=== PATIENT | female | born 1985 | race African-American/Black ===

== ENCOUNTER 2016-11-29 05:32 | Inpatient (IN) | payer OTHER ==
[~2016-11-29] VITALS: Ht 170.2 cm; Wt 124.3 kg
--- NOTE | ~2016-11-29 | S ---
[facility] [place] [address] SURGICAL PATH RPT PROCEDURE Name: ESTEBAN FLORES Room #: 440-P DIS IN M.R.#: [id number] Admission: 11/29/16 Date of : 85 Discharge: 11/30/16 Report #: [id number] Path Case #: [id number] PATHOLOGY REPORT COLLECTION DATE: 12/02/2016 RECEIVED DATE: 12/02/2016 SUBMITTING PHYS: Dr. Jose Manuel Perez OTHER PHYS: Dr. Micki Centeno SPECIMEN(S) RECEIVED: A.Gastric sleeve * * * * * * * * * * * * FINAL DIAGNOSIS: Gastric sleeve, partial sleeve gastrectomy: - No diagnostic abnormalities. (IUV:csd; d/t: 12/02/2016) PATHOLOGIST: Loree Price M.D. REPORT ELECTRONICALLY SIGNED BY: Loree Price M.D. DATE/TIME: 12/02/2016 15:20 * * * * * * * * * * * * GROSS PATHOLOGY: The specimen is received in formalin, labeled "yue Madrigal". Received is a partial gastrectomy specimen with a stapled margin of resection measuring 25.1 x 5.9 x 3.1 cm in greatest dimensions. The serosal surface is pink-vazquez and smooth to slightly shaggy in appearance. Opening the specimen reveals pink-vazquez mucosa with normal architectural folds and multiple pale vazquez polyps ranging in size from 0.2 to 0.4 cm in maximum dimensions. The specimen is submitted representatively in cassette A1. (KAH; 11/29/2016) CLINICAL HISTORY: Morbid obesity INITIAL CPT CODE(S): A; 79464 Professional services performed by [facility] at [facility] [address], [place] [address] Technical services performed by [facility] at [address] [place] [address]. [facility] [address] [place] [address] SURGICAL PATH RPT PROCEDURE Name: ESTEBAN FLORES Room #: 440-P [facility] IN .R.#: [id number] Admission: 11/29/16 Date of : 85 Discharge: 11/30/16 Report #: [id number] Path Case #: [id number] [facility] [address] [address] PHONE: [phone] DIRECTOR: Baldo Moore M.D. * * * END OF REPORT * * *
--- NOTE | ~2016-11-29 | H ---
[facility] [place] [address] HISTORY AND PHYSICAL Name: MARKESTEBAN HELMS Room #: 440-P [facility] IN M.R.#: [id number] Admission: 11/29/16 Attend Phys: Jose Manuel Perez MD, Discharge: 11/30/16 Date of : 85 Report #: [id number] THIS REPORT FOR: //name// For History and Physical, please see office documentation/handwritten note in the patient's medical record. <ELECTRONICALLY SIGNED> By: Jose Manuel Perez MD, FACS 12/04/16 1557 1428 Jose Manuel Perez MD, FACS /jr
--- NOTE | ~2016-11-29 | O ---
[facility] [place] [address] OPERATIVE REPORT Name: ESTEBAN FLORES Room #: 440-P [facility] IN M.R.#: [id number] Admission: 11/29/16 Attend Phys: Jose Manuel Perez MD, Discharge: Date of : 85 Report #: [id number] THIS REPORT FOR: //name// CC: MARY physician/PCP Jose Manuel Perez DATE OF SERVICE: 11/29/2016 PREOPERATIVE DIAGNOSES: 1. Morbid obesity with a body mass index of 45.16. 2. Gastroesophageal reflux disease. 3. Snoring. 4. Lumbago. 5. Joint pain. 6. Fatigue. POSTOPERATIVE DIAGNOSES: 1. Morbid obesity with a body mass index of 45.16. 2. Gastroesophageal reflux disease. 3. Snoring. 4. Lumbago. 5. Joint pain. 6. Fatigue. 7. Moderate sized type 3 paraesophageal hernia. PROCEDURES PERFORMED: 1. Laparoscopic sleeve gastrectomy. 2. Laparoscopic repair of a type 3 paraesophageal hernia with cruroplasty. 3. Thorough esophagogastroduodenoscopy (EGD). SURGEON: Jose Manuel Perez MD HAND STONE POLISHER: Thom Valenzuela MD ANESTHESIA: General endotracheal anesthesia. ESTIMATED BLOOD LOSS: Minimal (less than 10 mL). COMPLICATIONS: None appreciated. SPECIMENS: Two-thirds of the lateral gastric resection specimen to pathology. INDICATIONS: The patient is a 30-year-old morbidly obese -Beninese female who has been seen for her desire for weight loss surgery as she has had a very long history of obesity and has tried numerous weight loss attempts, including physician-directed weight loss plans, all to no avail. The patient [facility] [address] [place] [address] OPERATIVE REPORT Name: ESTEBAN FLORES Room #: 440-P [facility] IN M.R.#: [id number] Admission: 11/29/16 Attend Phys: Jose Manuel Perez MD, Discharge: Date of : 85 Report #: [id number] has undergone a thorough multimodal workup including evaluation and clearance by her primary care provider as well as by a dietitian and a psychologist who have all cleared her to proceed forward with bariatric surgery as well as indicating that it is necessary for weight loss and assistance with resolution of her comorbid conditions. As such, indication was for the above-mentioned procedures today with intraoperative findings of a moderately large type 3 paraesophageal hernia with both the fundus and the gastroesophageal junction contained within the distal mediastinum that required an extensive mediastinal dissection and a formal repair of the type 3 paraesophageal hernia prior to proceeding with the sleeve gastrectomy today. PROCEDURE: After explaining the risks, benefits, and alternatives of the procedure with the patient in detail in the preoperative holding area and obtaining written consent, the patient was brought to the operating room and placed supine on the operating room table. After conducting a thorough timeout procedure, verifying correct patient and procedure, the patient was given general endotracheal anesthesia. Once adequate anesthesia was obtained, her SCDs were hooked up to pneumatic compression device and she was given a preoperative dose of antibiotics in line with the SCIP protocol. The patient was also given a dose of Lovenox 1 hour prior to the operating room to prevent venous thromboembolism. The patient was now positioned in the low lithotomy position with her legs in the Yellofin stirrups and her abdomen was prepped and draped in standard surgical sterile fashion. I began the procedure by performing a thorough EGD. The Handsn upper endoscope was used to intubate the oropharynx and was traversed down into the stomach. The pylorus was identified and intubated and the scope was advanced to the second portion of the duodenum. Slow and careful withdrawal of the EGD scope showed no evidence of duodenitis, gastritis, esophagitis, mass lesions or ulcerations. A retroflexion view of the scope did show evidence of a hiatal hernia and as such, this was a diagnostic exam. The scope was straightened out with its tip at the level of the pylorus and the stomach was fully desufflated. I now proceeded with the operative portion of the procedure. After sterily scrubbing, 5 mL of 0.5% marcaine with epinephrine was used to anesthestize the skin in the right upper quadrant. A #15 bladed scalpel was used to make a 1.5cm skin incision at that location and a 15mm visiport was introduced through that incision with a 5mm 0 degree laparoscope. Once intraabdominal access was identified visually, the laparoscope and the obturator for the port were removed and the abdomen was insufflated to 15mm Hg pressure. The laparoscope was then changed to a 5mm 30 degree laparoscope and was reintroduced through that trocar to ensure no injury upon entry and no pathology. I then proceeded to place three additional 5mm ports in the left mid abdomen under direct vision after anesthestizing at each location with 5mL of 0.5% marcaine. The laparoscope was then placed in the port just to the left of the patient's umbilicus and she was placed in steep reverse Trendelenberg position. I then placed the Deandra liver retractor in the subxyphoid location by anesthetizing the skin at that location with more local and creating a small [facility] [address] [place] [address] OPERATIVE REPORT Name: ESTEBAN FLORES Room #: 440-P ADM IN M.Kelsea.#: [id number] Admission: 11/29/16 Attend Phys: Jose Manuel Perez MD, Discharge: Date of : 85 Report #: [id number] skin cedrick. I utilized the obturator for the 5mm trocar to penetrate the fascia at that location and then maneuvered the retractor through this defect and up under the left lobe of the liver. The retractor was then held up into position using the iron internal auditor device to stabilize it. I now proceeded to start my dissection after identifying our landmarks. The vein of Velazquez was identified overlying the pylorus. I measured 4 cm proximal to this location and began taking down the short gastric arteries from this location all the way up the greater curvature of the stomach using Harmonic scalpel for hemostasis. Once I arrived upon the base of the left elissa, I dissected anteriorly up the left elissa all while providing inferior traction on the stomach as the fundus of the stomach was seen to reside in the distal mediastinum along with the gastroesophageal junction consistent with a type 3 paraesophageal hernia. As I dissected up the left elissa, I was able to deliver the fundus back into the abdomen. As the crural defect was identified to be moderately large would necessitate formal repair and as such, the stomach was retracted to the left lateral aspect of the abdomen and I opened the pars flaccida with Harmonic scalpel. This allowed me to identify the base of the right elissa. I dissected anteriorly up the right elissa meeting with the dissection from the left side. I then elevated the stomach and dissected the retroesophageal space to allow for circumferential control at this juncture. I now carried out an extensive mediastinal dissection while placing traction on the stomach inferiorly to take down all adhesions in the mediastinum that would cause the esophagus and upper stomach to attempt to retract back up into the mediastinum. At the completion of the extensive mediastinal dissection, we had approximately 2 cm of intra-abdominal esophagus that was not under tension to recoil backup into the mediastinum. I now proceeded to repair the hiatal defect by performing cruroplasty using numerous sutures of 0 Surgidac on the EndoStitch device to place 3 sutures posteriorly and 2 sutures anteriorly to close the hiatus to where it was snug, but not extremely tight to the esophagus. The sutures were placed in this fashion so as not to distort the angle of entry into the abdomen significantly. The stomach was now elevated and all posterior gastric attachments were taken down with Harmonic scalpel for hemostasis. We ensured that we were well away from both the posterior aspect of the stomach as well as the anterior aspect of the pancreas so as to prevent injury from thermal spread. The EGD scope was now positioned around along the lesser curvature of the stomach and I started the sleeve gastrectomy portion of the procedure. The [place] Weber 60 mm stapler with a black load utilizing Black's Elana-Strip buttressing material was placed into the abdomen through the 15-mm trocar. The first firing of the stapler was carried out at the location 4 cm proximal to the pylorus and fired right along, but not extremely tight to the scope, so as not to cause stricturing, especially at the incisura. It should be noted that the 5-mm trocar in the left mid abdomen was upsized to a 12-mm port under direct vision to allow for the EndoStitch device. Another firing of an additional black load again utilizing Black's Elana-Strip buttressing material was carried out following the scope as a 34-British bougie. I then fired 5 additional green loads all utilizing Black's Elana-Strip buttressing material [facility] [address] [place] [address] OPERATIVE REPORT Name: ESTEBAN FLORES Room #: [facility] IN .Kelsea.#: [id number] Admission: 11/29/16 Attend Phys: Jose Manuel Perez MD, Discharge: Date of : 85 Report #: [id number] following the scope as a bougie all the way up to the left elissa until the stomach was completely transected. I then proceeded to utilize 10 mL of Tisseel on the Lucid Colloidslospray device to coat the entirety of the staple line with fibrin glue. I now proceeded to grasp the resection specimen and removed it out of the abdomen through the 15-mm fascial incision under direct vision. I then placed a fascial closing sutures around the 15-mm and 12-mm fascial incisions using 0 PDS suture on a Chavo-Pablo needle under direct vision. Neither of these were tied down at this juncture, but they were tagged with hemostats and trocars were placed under direct vision. I now proceeded to instill normal saline in the upper abdomen and turn the EGD scope back on. The EGD scope was slowly withdrawn, evaluating the stomach from the inside to ensure hemostasis from the staple line as well as insufflate the stomach and while it was held under saline in the abdomen, we performed a leak test, which was negative. The EGD scope was used to fully deflate the stomach and was removed via the oropharynx and passed off the field showing no evidence of bleeding whatsoever. I then sterilely rescrubbed and enter the operative field and suctioned all of the normal saline out of the abdomen. The Deandra liver retractor was removed under direct vision. The liver was healthy and uninjured. I then proceeded to tie down both 0 PDS sutures to repair the fascial defects of the larger incisions. The abdomen was fully desufflated and all remaining trocars were removed under direct vision. A 4-0 Monocryl was used in a standard subcuticular fashion for all skin incisions and Dermabond glue was applied to all skin wounds. The corner of the resection specimen had been removed, was trimmed away and normal saline was passively instilled into the resection specimen yielding 1950 mL in the resection specimen itself. At the end of the procedure, all instrument, needle and sponge counts were correct. The patient tolerated the procedure without incident, was awakened in the operating room, transitioned to the recovery room in stable condition with no apparent complications. <ELECTRONICALLY SIGNED> By: Jose Manuel Perez MD, FACS 11/29/16 1321 1046 1159 Jose Manuel Perez MD, FACS /nt
[~2016-11-29 05:32] MED LIST: BACTRIM DS TAB1 EACH PO; DOXYCYCLINE 10100 MG PO; LUTERA1 EACH PO; PANTOPRAZOLE SO40 M1 PO
[2016-11-29 07:26] VITALS: BP 134/80
[2016-11-29 12:00] VITALS: BP 142/77
[2016-11-29 16:00] VITALS: BP 146/78
[2016-11-29 19:50] VITALS: BP 135/81
[2016-11-30 04:03] VITALS: BP 130/73
[2016-11-30 04:22] LABS: HEMATOCRIT 37.8 % (37.0-47.0); HEMOGLOBIN 12.5 gm/dL (12.0-15.0); MCH 30.1 pg (26.0-34.0); MCHC 33.1 g/dL (28.0-37.0); MCV 90.8 fL (80.0-100.0); RBC 4.16 mil/uL (4.20-5.00); WBC 12.6 thou/uL (4.0-11.0)
[2016-11-30 04:39] LABS: CREATININE 0.8 mg/dL (0.6-1.0); POTASSIUM 4.2 mmol/L (3.5-5.1)
[2016-11-30 08:00] VITALS: BP 136/81
[2016-11-30 13:23] VITALS: BP 136/81
== END 2016-11-30 14:10 | disposition home or self-care (01) | DRG 621 ==
LOC: TBA 05:32 → OR 05:32 → TBA 05:34 → OR 10:21 → 4S 12:31 → OR 15:02 → 4S 11-30 14:10
PROVIDERS: Surgery
PROC: 0DB64Z3 Excision of Stomach, Percutaneous Endoscopic Approach, Vertical (ICD-10-PCS; principal; 2016-11-29)
PROC: 0DJ08ZZ Inspection of Upper Intestinal Tract, Via Natural or Artificial Opening Endoscopic (ICD-10-PCS; principal; 2016-11-29)
PROC: 0BQS4ZZ (ICD-10-PCS; principal; 2016-11-29)
PROC: 0BQR4ZZ (ICD-10-PCS; principal; 2016-11-29)
DX: E66.01 Morbid (severe) obesity due to excess calories (principal); Z68.42 Body mass index [BMI] 45.0-49.9, adult; K44.9 Diaphragmatic hernia without obstruction or gangrene; K21.9 Gastro-esophageal reflux disease without esophagitis; R53.83 Other fatigue; M54.5 Low back pain; R06.83 Snoring; M25.50 Pain in unspecified joint
CPT/HCPCS: 10102; 50010; 50101; 50222; 50249; 50386; 50555; 50558; 50739; 50740; 50962; 51437; 51489; 52182; 52265; 53307; 53311; 54022; 54118; 55245; 55326; 56462; 56525; 56526; 56531; 57092; 62110; 62900; 70005

== ENCOUNTER 2016-12-16 10:22 | Emergency (ER) | payer OTHER ==
[~2016-12-16] VITALS: Ht 170.2 cm; Wt 119.3 kg
--- NOTE | ~2016-12-16 | EKG ---
[place] [address] [address] [facility] [place] [address] ELECTROCARDIOGRAM REPORT Name: MARKESTEBAN SCOOTER Room #: DEP Krupa#: [id number] Admission: 12/16/16 Attend Phys: Discharge: 12/16/16 Date of : 85 Report #: [id number] THIS REPORT FOR: //name// [facility] ED Test Date: 2016-12-16 Test Time: 11:02:11 Pat Name: ESTEBAN FLORES Department: Room: Gender: F Procurement Specialist: elsi : 1985 Requested By: Jair Moreno Order Number: [id number] MD: Kenan Garcia Measurements Intervals Tracy Rate: 70 P: 13 VA: 213 QRS: 35 QRSD: 95 T: 15 QT: 405 QTc: 437 Interpretive Statements Sinus rhythm Prolonged VA interval ST elev, probable normal early repol pattern No previous ECG available for comparison Electronically Signed On 12-17-2016 8:46:48 CDT by Kenan Garcia [email or web address] <ELECTRONICALLY SIGNED> By: Kenan Garcia MD, [facility] 12/17/16 0846 1102 Kenan Garcia MD, FACC /EPI
[2016-12-16] MEDS ORDERED: CARAFATE1 GM/10 ML PO (10:35)
[2016-12-16] MEDS ORDERED: ZOFRAN ODT4 MG DISSOLVE (10:35)
[2016-12-16] MEDS ORDERED: HYDROCODONE-AC474 ML PO (10:36)
[2016-12-16 10:54] LABS: ABSOLUTE NEUTROPHILS 5.9 thou/uL (1.4-8.2); BASOPHILS 1.1 % (0.0-2.0); EOSINOPHILS 4.7 % (0.0-3.0); HEMATOCRIT 43.2 % (37.0-47.0); HEMOGLOBIN 14.7 gm/dL (12.0-15.0); LYMPHOCYTES 21.6 % (24.0-44.0); MCH 30.5 pg (26.0-34.0); MCHC 33.9 g/dL (28.0-37.0); MONOCYTES 8.8 % (1.0-8.0); PLATELET COUNT 205 thou/uL (150-400); POLYS 63.8 % (36.0-66.0); RDW 13.1 % (10.5-14.5); WBC 9.3 thou/uL (4.0-11.0)
[2016-12-16 10:55] LABS: URINE BLOOD TRACE (Negative); URINE COLOR YELLOW; URINE GLUCOSE-RANDOM* NEGATIVE (Negative); URINE KETONES 3+ (Negative); URINE LEUKOCYTES-REFLEX TRACE (Negative); URINE PROTEIN (DIPSTICK) 2+ (Negative); URINE SPECIFIC GRAVITY 1.025 (1.003-1.035)
[2016-12-16 10:55] LABS: MANUAL DIFF NO
[2016-12-16 11:02] LABS: ICTOTEST (BILI CONFIRMATORY) Negative (Negative); URINE BILIRUBIN NEGATIVE (Negative)
[2016-12-16 11:13] LABS: CASTS None Seen /LPF (None Seen); SQUAMOUS 4-10 Moderate /LPF (0-3); URINE WBC-REFLEX 6-15 Few /HPF (0-5)
[2016-12-16 11:14] LABS: CRYSTALS None Seen /LPF (None Seen); URINE RBC None Seen /HPF (0-2)
[2016-12-16 11:24] LABS: CALCIUM 8.9 mg/dL (8.5-10.1); POTASSIUM 3.5 mmol/L (3.5-5.1)
[2016-12-16 11:28] LABS: ALBUMIN 3.6 g/dL (3.4-5.0); TOTAL BILIRUBIN 0.5 mg/dL (<0.1-1.0); TOTAL PROTEIN 8.3 g/dL (6.4-8.2)
[2016-12-16] MEDS ORDERED: REGLAN 10 MG TA10 MG PO (11:51)
[2016-12-16] MEDS ORDERED: ZANTAC 150MG T150 MG PO (11:51)
[2016-12-16 12:03] VITALS: BP 127/77
== END 2016-12-16 12:04 | disposition home or self-care (01) ==
LOC: ER 10:22
PROVIDERS: Physician Assistant
DX: I95.1 Orthostatic hypotension (principal); K21.9 Gastro-esophageal reflux disease without esophagitis; N39.0 Urinary tract infection, site not specified; Z98.84 Bariatric surgery status

== ENCOUNTER → 2016-12-25 | Outpatient (CLI) | payer OTHER ==
[~2016-12-25] MED LIST changes: +CARAFATE1 GM/10 ML PO; +HYDROCODONE-AC474 ML PO; +REGLAN 10 MG TA10 MG PO; +ZANTAC 150MG T150 MG PO; +ZOFRAN ODT4 MG DISSOLVE
== END ==
LOC: RAD 08:10
DX: K91.0 Vomiting following gastrointestinal surgery (principal)

== ENCOUNTER 2017-01-01 22:32 | Emergency (ER) | payer OTHER ==
[~2017-01-01] VITALS: Ht 170.2 cm; Wt 113.4 kg
[~2017-01-01 22:32] MED LIST changes: -CHLORDIAZEPOXI1 EAC1 PO; -PROMETHAZINE12.5 M1 PO; -PROTONIX40 M1 PO; -TRANSDERM-SCO1 PATC1 TD; -VALIUM5 MG PO
[2017-01-01 23:13] LABS: URINE BILIRUBIN 2+ (Negative); URINE BLOOD TRACE (Negative); URINE COLOR ORANGE; URINE GLUCOSE-RANDOM* NEGATIVE (Negative); URINE KETONES 3+ (Negative); URINE LEUKOCYTES-REFLEX NEGATIVE (Negative); URINE PROTEIN (DIPSTICK) 2+ (Negative); URINE SPECIFIC GRAVITY >= 1.030 (1.003-1.035)
[2017-01-01 23:15] LABS: ICTOTEST (BILI CONFIRMATORY) Positive (Negative)
[2017-01-01 23:21] LABS: CASTS None Seen /LPF (None Seen); CRYSTALS None Seen /LPF (None Seen); SQUAMOUS 0-3 Few /LPF (0-3); TRANSITIONAL EPITHEL CELL 0-3 Few /LPF (None Seen); URINE RBC 0-2 Rare /HPF (0-2); URINE WBC-REFLEX 0-5 Rare /HPF (0-5)
[2017-01-01 23:43] LABS: ABSOLUTE NEUTROPHILS 5.9 thou/uL (1.4-8.2); BASOPHILS 0.6 % (0.0-2.0); EOSINOPHILS 2.9 % (0.0-3.0); HEMATOCRIT 41.6 % (37.0-47.0); LYMPHOCYTES 17.4 % (24.0-44.0); MCH 30.5 pg (26.0-34.0); MCHC 33.5 g/dL (28.0-37.0); MCV 90.8 fL (80.0-100.0); MONOCYTES 10.7 % (1.0-8.0); PLATELET COUNT 112 thou/uL (150-400); POLYS 68.4 % (36.0-66.0); RBC 4.58 mil/uL (4.20-5.00); RDW 13.5 % (10.5-14.5); WBC 8.6 thou/uL (4.0-11.0)
[2017-01-01] MEDS ORDERED: PROMETHAZINE12.5 M1 PO (23:51)
[2017-01-01 23:52] LABS: MANUAL DIFF NO
[2017-01-01] MEDS ORDERED: CHLORDIAZEPOXI1 EAC1 PO (23:53)
[2017-01-01] MEDS ORDERED: TRANSDERM-SCO1 PATC1 TD (23:54)
[2017-01-01] MEDS ORDERED: VALIUM5 MG PO (23:54)
[2017-01-01] MEDS ORDERED: PROTONIX40 M1 PO (23:54)
[2017-01-01 23:58] LABS: CALCIUM 8.9 mg/dL (8.5-10.1); CREATININE 0.9 mg/dL (0.6-1.0)
[2017-01-02 00:02] LABS: ALBUMIN 3.5 g/dL (3.4-5.0); TOTAL BILIRUBIN 0.7 mg/dL (<0.1-1.0); TOTAL PROTEIN 7.8 g/dL (6.4-8.2)
[2017-01-02 04:37] VITALS: BP 124/80
== END 2017-01-02 04:39 | disposition home or self-care (01) ==
LOC: ER 22:32
PROVIDERS: Physician Assistant
DX: R11.2 Nausea with vomiting, unspecified (principal); E87.6 Hypokalemia; R10.9 Unspecified abdominal pain; Z98.84 Bariatric surgery status

== ENCOUNTER → 2017-01-01 | Outpatient (CLI) | payer OTHER ==
[~2017-01-01] MED LIST changes: +CHLORDIAZEPOXI1 EAC1 PO; +PROMETHAZINE12.5 M1 PO; +PROTONIX40 M1 PO; +TRANSDERM-SCO1 PATC1 TD; +VALIUM5 MG PO
== END ==
LOC: RAD 07:53
DX: R13.10 Dysphagia, unspecified (principal); R11.2 Nausea with vomiting, unspecified; Z90.3 Acquired absence of stomach [part of]

== ENCOUNTER → 2017-01-06 | Outpatient (CLI) | payer OTHER ==
[~2017-01-06] MED LIST changes: +CHLORDIAZEPOXI1 EAC1 PO; +PROMETHAZINE12.5 M1 PO; +PROTONIX40 M1 PO; +TRANSDERM-SCO1 PATC1 TD; +VALIUM5 MG PO
== END ==
LOC: NUC 07:49
DX: R10.31 Right lower quadrant pain (principal); R11.2 Nausea with vomiting, unspecified

== ENCOUNTER 2018-01-01 12:16 | Inpatient (IN) | payer OTHER ==
[~2018-01-01] VITALS: Ht 170.2 cm; Wt 55.8 kg
--- NOTE | ~2018-01-01 | HC ---
[facility] [place] [address] CONSULTATION Name: ESTEBAN FLORES Room #: 453-P ADM IN M.R.#: [id number] Admission: 01/01/18 Attend Phys: Amari Gibbons MD Discharge: Date of : 85 Report #: [id number] THIS REPORT FOR: //name// CC: Chino Gibbons HISTORY OF PRESENT ILLNESS: This patient was admitted through the Emergency Room with hypotension. She has developed severe and worsening memory and was asked to see her in consultation because of possibility of underlying porphyria. She cannot tell me if she has ever seen a automatic drill operator or who that would be regarding this possible diagnosis. She underwent a gastric sleeve surgery in November of 2016 for morbid obesity and has subsequently lost considerable weight. She has had preexistent issues with depression and prior psychiatric admissions. She has been seen here by Neurology. I have reviewed her records from [facility] who made mention of her seeing a automatic drill operator for porphyria but no labs were found. There is nothing within the [facility] system. MEDICATIONS: As in the MFR. ALLERGIES: Unknown. SOCIAL HISTORY: She is nondrinker, nonsmoker. FAMILY HISTORY: Unremarkable. PAST MEDICAL HISTORY: Significant for prior reflux along with esophageal hernia. REVIEW OF SYSTEMS: Positive for poor p.o. intake with nausea. She denied sweats, chills, fevers. She has had no adenopathy or night sweats. She has had some jerking eye movements. Her remaining review of systems is negative. PHYSICAL EXAMINATION: GENERAL: Shows her alert, but unable to recall the answers to most questions. HEENT: Shows her mouth to be clear. NECK: Supple. BREASTS: Revealed no suspicious masses. CHEST: Clear. ABDOMEN: Soft. EXTREMITIES: Show no clubbing, cyanosis, edema. NEUROLOGIC: No focal or localizing signs. SKIN: Normal turgor. LYMPHATICS: No palpable axillary or supraclavicular adenopathy. [facility] [address] [place] [address] CONSULTATION Name: ESTEBAN FLORES Room #: 453-P ADM IN ..#: [id number] Admission: 01/01/18 Attend Phys: Amari Gibbons MD Discharge: Date of : 85 Report #: [id number] HOSPITAL COURSE: Laboratories reviewed, shows a normal hemogram. B12 and folate levels are normal as are chemistries. ASSESSMENT: Markedly poor memory and a young patient with neurologic decline. PLAN: I doubt that this represents porphyria. 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 I called Dr. Harris's office and he has no record of any prior laboratory testing or hematology consultation. I will go ahead and do a spot urine test for PBG and delta-ALA to confirm that this is negative, as I was unable to locate any of her prior testing. Thanks for allowing me to see her in consultation. <ELECTRONICALLY SIGNED> By: Maria Isabel Landon MD 01/07/18 1229 1231 1317 MD wesley Parker
--- NOTE | ~2018-01-01 | HC ---
[facility] [place] [address] CONSULTATION Name: ESTEBAN FLORES Room #: 453-P ADM IN M.R.#: [id number] Admission: 01/01/18 Attend Phys: Amari Gibbons MD Discharge: Date of : 85 Report #: [id number] THIS REPORT FOR: //name// CC: Chino Gibbons DATE OF SERVICE: 01/05/2018 HISTORY OF PRESENT ILLNESS: The patient is a 32-year-old female who has a prior history of morbid obesity, underwent a gastric sleeve approximately a year ago. She has had the surgery in 11/2016. Her BMI at that point was 45. She apparently could not hold anything down and stopped eating for a while. By the summer, there was problems where she was hallucinating. She was noted to be taken to [facility], but they would not take her and she was admitted to [facility]. She was apparently admitted on 02/13/2017 and hospitalized for 2 months. 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 Eventually, she was discharged home, ambulating with a cane. She has had subsequent hospitalizations at [place] and [place] as well as a stay at [facility]. Eventually, she was able to be discharged to live with her grandmother in a condominium using mostly a wheelchair, although she could use a walker short distances. She has been evaluated during this hospitalization with low blood pressure. She continues to have problems with being "unable to walk." She is noted to have vertical nystagmus. There was a question of Wernicke encephalopathy, but thiamine was noted to be normal. Neurology has seen her and MRI/MRA were noted to be negative during this hospitalization. There is consideration for transfer to if workup continues negative. We are seeing her in rehabilitation medicine consultation. PAST MEDICAL HISTORY: Delineated above. The patient has decreased memory, as far as further prior medical history. She has had prior left ankle ORIF. She had gastric sleeve surgery on 11/29/2016. She had prior problems with GERD and intractable nausea and vomiting. History of syncope and urinary tract infection. ALLERGIES: No known drug allergies. MEDICATIONS: Please see the full medication listing. These are noted to include her current medications plus any vitamins, herbals and supplements. HABITS: No history of tobacco or alcohol abuse. SOCIAL HISTORY: As noted above. [facility]. Grandmother apparently does not work outside the home. There are no steps. She utilized to wheelchair versus a walker short distances. She [address] [address] CONSULTATION Name: MARKESTEBAN HELMS Room #: 453-P ADM IN M.R.#: [id number] Admission: 01/01/18 Attend Phys: Amari Gibbons MD Discharge: Date of : 85 Report #: [id number] indicated that she could get in and out of the wheelchair reasonably well, although her granddaughter need to help her try to get into the bathroom as the wheelchair does not fit into the bathroom. Her mother recently , per chart notes. REVIEW OF SYSTEMS: No current complaints of chest pain, shortness of breath or abdominal discomfort. PHYSICAL EXAMINATION: GENERAL: A 32-year-old -Dutch female in no obvious distress. She is alert, pleasant and has decreased memory, but cooperative. Temperature 98.6, pulse 70, respirations 16, blood pressure 96/60. She has definite vertical nystagmus when testing extraocular movements. Affect pleasant, maybe somewhat depressed. EXTREMITIES: Upper extremities, functional range of motion. Question of a flexor synergy of both upper extremities. DTRs however, appeared decreased. Strength is probably a grade 4-, lower extremities. There is no clonus at the ankles. Strength probably a grade 4-. She did reasonably well with ixybzx-gx-xfkw and njmg-rl-ynrx. Functionally, she is transferring with min assist. She has been unable to ambulate to this point, but she has been able to propel the wheelchair with assistance for short distances. Sit to stand is min assist. ASSESSMENT: A 32-year-old -Dutch female with the following problem list: 1. Abnormal eye movements/vertical nystagmus uncertain etiology. 2. History of bithalamic strokes per progress notes. MRI this admission of the brain was negative. 3. Wernicke encephalopathy, probably unlikely is, thiamine normal. 4. Decreased balance with functional mobility and ADL deficits and decreased memory. 5. Noted declining nutritional intake since her gastric sleeve surgery 12/02/2017. 6. History of persistent nausea. 7. History of depression, has had prior psych stays per progress notes. 8. Past history of obesity. She underwent a gastric sleeve. Her current BMI was noted to be 19. Noted to be tolerating current diet and having normal bowel function. PLAN: Continuing the current therapies. She is motivated to try to improve her overall functional independence. Note that there is consideration for possible [facility] [address] [place] [address] CONSULTATION Name: ESTEBAN FLORES Room #: 453-P ADM IN M.R.#: [id number] Admission: 01/01/18 Attend Phys: Amari Gbibons MD Discharge: Date of : 85 Report #: [id number] transfer to [facility] if workup negative. Otherwise, we will be glad to follow regarding rehab therapy issues. <ELECTRONICALLY SIGNED> By: Chavo Joseph MD 01/06/18 1440 1049 1148 Chavo Joseph MD /[facility]
--- NOTE | ~2018-01-01 | HC ---
[facility] [place] [address] CONSULTATION Name: ESTEBAN FLORES Room #: 453-P ADM IN M.R.#: [id number] Admission: 01/01/18 Attend Phys: Amari Gibbons MD Discharge: Date of : 85 Report #: [id number] THIS REPORT FOR: //name// CC: Chino Gibbons DATE OF SERVICE: 01/04/2018 AGE: 32. ATTENDING PHYSICIAN: Amari Gibbons MD. PHYSICIAN UNDERWRITER: Reggie Fung, PhD. CLINICAL PRESENTATION: The patient is a 32-year-old female admitted to the [facility] for evaluation and treatment following a deterioration in functioning. She was initially admitted through the Emergency Department with abnormally low blood pressure. The patient also presented with nystagmus and an inability to walk. Her history includes a gastric bypass surgery in 11/2016. Since her surgery, she had not returned to a normal pattern of diet and nutrition. Her functional level deteriorated in the summer of 2016 to the extent of hallucinations and inability to meet personal activities of daily living. She was admitted to [facility] for an extended psychiatric hospitalization that included a neurological workup. 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 Her grandmother stated that she required a feeding tube during her psychiatric treatment because of very poor nutritional intake. She was discharged home to care of her grandmother. However, her behavior continued to decline. She discontiued employment in 05/2017 and driving in 07/2017. Her grandmother has been her primary caregiver. 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 She has a master's degree from the [employer]. The patient has had treatment for depression and anxiety. Stressful events for her include the of her mother with whom she was very close. Her mother from breast cancer in 2013. She has one brother with whom she has a close relationship. However, he and moved outside the city. She was engaged, but her fiance ended the relationship. Her father is involved and concerned about her wellbeing. However, the father is living outside the [facility] in [place]. [facility] [address] [place] [address] CONSULTATION Name: MARKESTEBAN HELMS Room #: 453-P [facility] IN .R.#: [id number] Admission: 01/01/18 Attend Phys: Amari Gibbons MD Discharge: Date of : 85 Report #: [id number] TECHNIQUES UTILIZED: Clinical interview, review of medical records, staff consultation and behavioral observation, mini mental status exam 2 standard version, verbal fluency assessment (letter and category) and brief abstract reasoning test. EXAMINATION FINDINGS: The patient was alert and cooperative with the assessment. She was unable to accurately describe the reason for her hospitalization and report deficits in memory as interfering with her recall of recent of events. Her primary problems are reported to include memory loss and walking. She does not report subjective symptoms of depression and indicates that sleep and appetite are improving. While she describes Feeling anxious in regard to her memory loss her mood during the interview was calm and somewhat indifferent to the severity of her symptoms. Her performance on the mini mental status exam 2 standard version was extremely low with a raw score of 23/30. However, she is alert and oriented. The patient was 3/3 for initial registration, 3/5 for orientation to time, 4/[address] She was 0/3 for immediate recall of 3 items after a brief time delay and distraction. However, recognition memory of 3 items was within normal limits. Suggested is a deficit in retrieval that is affecting immediate recall. While extremely low, her performance on the MMSE 2 standard version revealed an improvement in cognitive functioning. She has 5/5 for serial sevens, 2/2 for naming, 1/1 for repetition. Auditory comprehension is within normal limits. She could read and follow a single command. The patient was able to dictate a sentence. She had difficulty in copying a simple geometric design. Difficulty in upper extremity dexterity is suggested as the reason for deficits in copying. The patient was able to accurately complete clock drawing. However, once again deficits in motor strength and upper extremity dexterity interfered with the quality of her response. Verbal fluency assessment reveals extremely low performance. Letter fluency was at the 2nd percentile with a T score of 29. Category fluency was less than 1% with a T score of 19. Overall, total fluency was a T score of 19, which is less than the 1st percentile. Brief abstract reasoning test was in a mild to moderate level of impairment with a raw score of 4/8. The overall performance on the neurocognitive assessment suggests deficits in memory and executive functioning. Her orientation, immediate recall and verbal fluency is improving in comparison to her initial hospitalization. Suggested is a delirium that is resolving. However, she has had a rapid and acute [facility] [address] [place] [address] CONSULTATION Name: ESTEBAN FLORES Room #: 453-P ADM IN M.R.#: [id number] Admission: 01/01/18 Attend Phys: Amari Gibbons MD Discharge: Date of : 85 Report #: [id number] deterioration in functioning. This type of presentation does not appear consistent with a Wernicke's encephalopathy. Rare neurodegenerative conditions that could contribute to a rapid onset of neurocognitive disorder e.g., herpes encephalitis, prion type disorder, e.g., Creutzfeldt-Brock disease. However, the patient has had brain imaging and spinal tap, which were negative. Medical records had indicated that she had bihemispheric thalamic stroke. However, current brain imaging did not confirm the thalamic stroke. At the time of her admission, contributing to her condition may have been nutritional deficits, depression and medications that contribute to sensory - motor disorder. Depression regarding situational events and body image may also be contributing to psychological etiology. DIAGNOSTIC IMPRESSION: 1. Delirium, hypoactive, acute. 2. Neurocognitive disorder, unspecified, without behavior disorder - extent to be determined. 3. Eating disorder (history of gastric sleeve and need for feeding tube). 4. Unspecified depressive disorder. 5. Possible conversion disorder. RECOMMENDATIONS: Physical Medicine consultation with Dr. Joseph for inpatient rehabilitation. The use of speech therapy will also be helpful to assist with the development of compensatory strategies for areas of decreased cognition. Decrease as medically appropriate, medications with sedating features, example diazepam. The use of mirtazapine at bedtime may continue to be of benefit to both assist with sleep as well as stimulation of appetite. Continued neuropsychological assessment and services for monitoring and evaluation of neurocognitive status. Psychotherapy following her discharge to assist her in adjustment to multiple losses and changes in body image. Thank you very much for allowing me to provide the consultation on this patient. <ELECTRONICALLY SIGNED> By: Reggie Fung, PhD 01/05/18 1750 [id number] Reggie Fung, PhD /nt
--- NOTE | ~2018-01-01 | EKG ---
[address] [place] [address] ELECTROCARDIOGRAM REPORT Name: ESTEBAN FLORES Room #: 453-P ADM IN M.R.#: [id number] Admission: 01/01/18 Attend Phys: Amari Gibbons MD Discharge: Date of : 85 Report #: [id number] THIS REPORT FOR: //name// [facility] ED Test Date: 2018-01-01 Test Time: 12:30:26 Pat Name: ESTEBAN FLORES Department: Room: Gender: F [employer]ic [employer]: JIMENEZ : 1985 Requested By: Arthur Infante Order Number: [id number] MD: Kenan Garcia Measurements Intervals [place] Rate: 93 P: 50 VA: 157 QRS: 71 QRSD: 80 T: 61 QT: 351 QTc: 437 Interpretive Statements Sinus rhythm ST elevation suggests early repolarization Baseline wander in lead(s) II,III,aVF Compared to ECG 12/16/2016 11:02:11 First degree AV block no longer present Electronically Signed On 01-01-2018 16:41:20 CDT by Kenan Garcia [email or web address] <ELECTRONICALLY SIGNED> By: Kenan Garcia MD, [facility] 01/01/18 1641 1230 1230 Kenan Garcia MD, [facility] /EPI
--- NOTE | ~2018-01-01 | EEG ---
[facility] [place] [address] ELECTROENCEPHALOGRAM Name: ESTEBAN FLORES Room #: 453-P [facility] IN M.R.#: [id number] Admission: 01/01/18 Attend Phys: Amari Gibbons MD Discharge: 01/08/18 Date of : 85 Report #: [id number] THIS REPORT FOR: //name// CC: Chino Gibbons DESCRIPTION: This patient is being evaluated for altered mental status. EEG was done by placing the electrode by standard 10-20 system of electrode placement. Both referential and sequential montages were used for recording. Background activity in this patient's EEG is about 11 Hz and 30-40 microvolts. It is a symmetrical activity. The patient goes to sleep that is associated with bilateral slowing and vertex sharp waves. Photic stimulation is unremarkable. Throughout the record, no active epileptiform activity was noticed. IMPRESSION: In spite of the patient's history of significant memory disturbances, this patient's EEG does not demonstrate any clear-cut electrophysiological abnormality. Thank you very much for this referral. <ELECTRONICALLY SIGNED> By: Angelito Moore MD 01/12/182021 32 39 Angelito Moore MD /nt
[2018-01-01 12:22] VITALS: BP 97/65
[2018-01-01] MEDS ORDERED: WELLBUTRIN SR100 MG PO (12:38)
[2018-01-01] MEDS ORDERED: ARIPIPRAZOLE5 MG PO (12:38)
[2018-01-01] MEDS ORDERED: TRAZODONE HCL50 MG (12:38)
[2018-01-01] MEDS ORDERED: K-DUR10 MEQ PO (12:38)
[2018-01-01 13:09] LABS: URINE BILIRUBIN NEGATIVE (Negative); URINE BLOOD 2+ (Negative); URINE CLARITY CLOUDY; URINE COLOR YELLOW; URINE GLUCOSE-RANDOM* NEGATIVE (Negative); URINE KETONES 1+ (Negative); URINE LEUKOCYTES-REFLEX NEGATIVE (Negative); URINE NITRITE-REFLEX NEGATIVE (Negative); URINE PROTEIN (DIPSTICK) TRACE (Negative); URINE SPECIFIC GRAVITY >= 1.030 (1.005-1.035); URINE UROBILINOGEN 0.2 E.U./dl (0.2-1.0)
[2018-01-01 13:26] LABS: AMP/METHAMP POSITIVE (Negative); BARBITURATES Negative (Negative); BENZODIAZEPINES Negative (Negative); COCAINE Negative (Negative); METHADONE Negative (Negative); OPIATES Negative (Negative); PCP Negative (Negative)
[2018-01-01 13:27] LABS: CALCIUM OXALATE 0-3 Few /LPF (None Seen)
[2018-01-01 13:28] LABS: CASTS None Seen /LPF (None Seen); SQUAMOUS 4-10 Moderate /LPF (0-3)
[2018-01-01 13:29] LABS: BACTERIA-REFLEX 1-9 Few /HPF (None Seen); URINE RBC 3-10 Few /HPF (0-2); URINE WBC-REFLEX 0-5 Rare /HPF (0-5)
[2018-01-01 14:52] LABS: BASOPHILS 1.1 % (0.0-2.0); EOSINOPHILS 1.5 % (0.0-3.0); HEMATOCRIT 38.2 % (37.0-47.0); HEMOGLOBIN 12.7 gm/dL (12.0-15.0); LYMPHOCYTES 28.3 % (24.0-44.0); MCH 30.5 pg (26.0-34.0); MCHC 33.3 g/dL (28.0-37.0); MCV 91.8 fL (80.0-100.0); MONOCYTES 7.5 % (1.0-8.0); PLATELET COUNT 174 thou/uL (150-400); POLYS 61.6 % (36.0-66.0); RBC 4.16 mil/uL (4.20-5.00); RDW 14.1 % (10.5-14.5); WBC 6.5 thou/uL (4.0-11.0)
[2018-01-01 15:02] LABS: CALCIUM 9.4 mg/dL (8.5-10.1); CREATININE 0.9 mg/dL (0.6-1.0); POTASSIUM 4.3 mmol/L (3.5-5.1)
[2018-01-01 15:40] VITALS: BP 98/58
[2018-01-01 16:07] LABS: FOLIC ACID 16.3 ng/mL (8.6-58.9)
[2018-01-01 16:23] VITALS: BP 97/55
[2018-01-01 17:57] VITALS: BP 98/58
[2018-01-01 18:28] VITALS: BP 110/73
[2018-01-02 04:14] VITALS: BP 99/62
[2018-01-02 06:35] LABS: HEMATOCRIT 38.3 % (37.0-47.0); HEMOGLOBIN 12.7 gm/dL (12.0-15.0); MCH 30.5 pg (26.0-34.0); MCHC 33.2 g/dL (28.0-37.0); MCV 91.7 fL (80.0-100.0); RBC 4.17 mil/uL (4.20-5.00); RDW 14.4 % (10.5-14.5); WBC 4.3 thou/uL (4.0-11.0)
[2018-01-02 06:49] LABS: CALCIUM 9.3 mg/dL (8.5-10.1); CREATININE 0.8 mg/dL (0.6-1.0)
[2018-01-02 07:50] VITALS: BP 105/63
[2018-01-02 12:19] VITALS: BP 105/63
[2018-01-02 12:21] LABS: % SATURATION 25 % (20-39); IRON 57 ug/dL (50-170); TIBC 224 ug/dL (250-450)
[2018-01-02 13:01] LABS: ALBUMIN 3.2 g/dL (3.4-5.0); DIRECT BILIRUBIN < 0.1 mg/dL (<0.1-0.3); SGOT 15 U/L (15-37); SGPT 21 U/L (30-65); TOTAL BILIRUBIN 0.3 mg/dL (<0.1-1.0); TOTAL PROTEIN 6.5 g/dL (6.4-8.2)
[2018-01-02 14:36] LABS: CSF GLUCOSE 57 mg/dL (40-70); CSF PROTEIN 36 mg/dL (15-45)
[2018-01-02 15:13] LABS: VOLUME 15 ml
[2018-01-02 15:14] LABS: CSF CLARITY CLEAR; CSF COLOR COLORLESS; CSF RBC 34 /mm3; CSF WBC 0 /mm3 (0-10)
[2018-01-02 15:54] VITALS: BP 97/64
[2018-01-02 16:00] LABS: PHOSPHORUS 3.7 mg/dL (2.5-4.9)
[2018-01-02 19:07] VITALS: BP 91/53
[2018-01-03 03:41] VITALS: BP 112/78
[2018-01-03 07:10] LABS: 25-HYDROXY TOTAL 40.2 ng/mL (30.0-100.0)
[2018-01-03 08:20] VITALS: BP 100/62
[2018-01-03 10:51] LABS: ABSOLUTE NEUTROPHILS 3.2 thou/uL (1.4-8.2); BASOPHILS 0.3 % (0.0-2.0); EOSINOPHILS 1.5 % (0.0-3.0); HEMATOCRIT 36.9 % (37.0-47.0); HEMOGLOBIN 12.1 gm/dL (12.0-15.0); LYMPHOCYTES 35.5 % (24.0-44.0); MCH 30.7 pg (26.0-34.0); MCHC 32.8 g/dL (28.0-37.0); MCV 93.5 fL (80.0-100.0); PLATELET COUNT 136 thou/uL (150-400); POLYS 56.7 % (36.0-66.0); RBC 3.95 mil/uL (4.20-5.00); RDW 14.8 % (10.5-14.5); WBC 5.6 thou/uL (4.0-11.0)
[2018-01-03 16:28] VITALS: BP 102/64
[2018-01-03 16:58] LABS: CALCIUM 8.4 mg/dL (8.5-10.1); CREATININE 0.8 mg/dL (0.6-1.0)
[2018-01-03 19:41] VITALS: BP 91/55
[2018-01-04 03:27] VITALS: BP 98/65
[2018-01-04 08:38] VITALS: BP 103/67
[2018-01-04 15:52] VITALS: BP 94/63
[2018-01-04 19:49] VITALS: BP 84/55
[2018-01-05 04:09] VITALS: BP 101/60
[2018-01-05 06:20] LABS: ABSOLUTE NEUTROPHILS 2.2 thou/uL (1.4-8.2); BASOPHILS 0.8 % (0.0-2.0); EOSINOPHILS 1.9 % (0.0-3.0); HEMATOCRIT 34.2 % (37.0-47.0); HEMOGLOBIN 11.5 gm/dL (12.0-15.0); MCHC 33.7 g/dL (28.0-37.0); MCV 91.9 fL (80.0-100.0); PLATELET COUNT 149 thou/uL (150-400); POLYS 43.3 % (36.0-66.0); RBC 3.72 mil/uL (4.20-5.00); RDW 14.2 % (10.5-14.5)
[2018-01-05 06:24] LABS: CALCIUM 9.4 mg/dL (8.5-10.1); CREATININE 0.8 mg/dL (0.6-1.0); POTASSIUM 3.9 mmol/L (3.5-5.1)
[2018-01-05 08:28] VITALS: BP 96/60
[2018-01-05 16:17] VITALS: BP 95/62
[2018-01-05 20:21] VITALS: BP 101/59
[2018-01-06 01:06] LABS: IgA 160 mg/dL (87-352); IgG 912 mg/dL (700-1600); IgM 193 mg/dL (26-217)
[2018-01-06 03:20] VITALS: BP 99/53
[2018-01-06 08:00] VITALS: BP 95/64
[2018-01-06 16:00] VITALS: BP 92/56
[2018-01-06 19:42] VITALS: BP 90/52
[2018-01-06 21:06] LABS: ANGIOTENSIN CONVERTNG ENZ.CSF 0.9 U/L (0.0-2.5)
[2018-01-07 04:00] VITALS: BP 95/60
[2018-01-07 08:00] VITALS: BP 113/65
[2018-01-07 11:32] VITALS: BP 113/65
[2018-01-07 16:00] VITALS: BP 100/65
[2018-01-07 19:41] VITALS: BP 91/59
[2018-01-08 04:23] VITALS: BP 102/64
[2018-01-08 08:00] VITALS: BP 106/64
[2018-01-08] MEDS ORDERED: ENOXAPARIN40 MG/0.1 SUBQ (12:02)
[2018-01-08] MEDS ORDERED: REMERON15 MG PO (12:02)
[2018-01-08] MEDS ORDERED: COLACE100 MG PO (12:02)
[2018-01-08] MEDS ORDERED: ZINC SULFATE 2220 MG PO (12:02)
[2018-01-09 08:08] LABS: LYME IGG CSF < 0.08 Index (0.00-0.09); LYME IGM CSF < 0.06 Index (0.00-0.06)
== END 2018-01-08 13:10 | DRG 74 ==
LOC: ER 12:16 → 4W 14:24 → EROBS 14:24 → 4W 16:22
PROVIDERS: Emergency Medicine; Hospitalist; Nurse Practitioner; Psychiatry & Neurology Neurology; Psychiatry & Neurology Neuromuscular Medicine
PROC: 05HY33Z Insertion of Infusion Device into Upper Vein, Percutaneous Approach (ICD-10-PCS; principal; 2018-01-01)
PROC: 009U3ZX Drainage of Spinal Canal, Percutaneous Approach, Diagnostic (ICD-10-PCS; 2018-01-02)
PROC: B01B1ZZ Fluoroscopy of Spinal Cord using Low Osmolar Contrast (ICD-10-PCS; 2018-01-02)
DX: G62.9 Polyneuropathy, unspecified (principal); E51.2 Wernicke's encephalopathy; Z68.1 Body mass index [BMI] 19.9 or less, adult; I95.9 Hypotension, unspecified; F32.9 Major depressive disorder, single episode, unspecified; F41.9 Anxiety disorder, unspecified; R41.0 Disorientation, unspecified; R41.9 Unspecified symptoms and signs involving cognitive functions and awareness; F50.9 Eating disorder, unspecified; H55.09 Other forms of nystagmus; K21.9 Gastro-esophageal reflux disease without esophagitis; E66.01 Morbid (severe) obesity due to excess calories; G47.00 Insomnia, unspecified; R11.0 Nausea; R27.0 Ataxia, unspecified; G35 Multiple sclerosis; Z90.3 Acquired absence of stomach [part of]
CPT/HCPCS: 10045; 27001